=== PATIENT | male | born 1970 | race Two or more races ===

== ENCOUNTER 2022-12-09 18:20 | Inpatient (IN) | payer OTHER ==
[~2022-12-09] VITALS: Ht 175.3 cm; Wt 134.0 kg
[2022-12-09] MEDS ORDERED: NICARDIPINE 40MG/200ML PREMIX 200 ML IV STA (18:31)
[2022-12-09] MEDS ORDERED: PROPOFOL 10MG/ML 100ML 100 ML IV STA (18:31)
[2022-12-09 18:44] LABS: BASOPHILS % 0.3 % (0.0-2.0); EOSINOPHILS % 3.1 % (0.0-5.0); HEMATOCRIT. 46.2 % (42.0-52.0); HEMOGLOBIN. 15.8 g/dL (14.0-18.0); LYMPHOCYTES % 46.4 % (20.0-50.0); MEAN CORPUSCULAR HEMOGLOBIN 29.3 pg (28.0-32.0); MEAN PLATELET VOLUME 10.1 fl (7.4-10.4); MONOCYTES % 5.5 % (2.0-8.0); NEUTROPHILS % 44.7 % (40.0-76.0); PLATELET 200 x1000/uL (130-400); RED BLOOD CELL COUNT 5.37 mill/uL (4.7-6.1)
[2022-12-09] MEDS ORDERED: FENTANYL 2500MCG/250ML PMX 250 ML IV ONE (18:45)
[2022-12-09 18:54] LABS: CHLORIDE 100 mEq/L (98-107)
[2022-12-09] MEDS ORDERED: MANNITOL 12.5G (25%) VIAL 50ML IV ONE (19:00)
[2022-12-09] MEDS ORDERED: FENTANYL 2500MCG/250ML PMX 250 ML IV PRN (19:00)
[2022-12-09] MEDS ORDERED: LEVETIRACETAM 500MG PREMIX 100 ML IV ONE ×2 (19:00)
[2022-12-09 19:03] LABS: ETHANOL BLOOD < 10 mg/dL; PROTHROMBIN TIME 10.7 sec (9.6-11.0)
[2022-12-09 19:15] LABS: BG BASE EXCESS -2.4 mmol/L (-2.0-2.0); BG CARBOXYHEMOGLOBIN 0.9 % (0.5-1.5); BG DEOXYHEMOGLOBIN 0.4 % (0.0-5.0); BG METHEMOGLOBIN 0.5 % (0.0-1.5); BG OXYGEN SATURATION 99.6 % (92.0-98.5); BG OXYHEMOGLOBIN 98.2 % (94.0-97.0); BG PCO2 42.2 mmHg (35.0-45.0); BG PH 7.355 (7.350-7.450); BG PO2 210.3 mmHg (75.0-100.0); BG TOTAL HEMOGLOBIN 16.2 g/dL (12.0-18.0)
[2022-12-09] MEDS ORDERED: LEVETIRACETAM 1000MG PREMIX 100 ML IV NR (19:15)
[2022-12-09] MEDS ORDERED: MANNITOL IV NR (19:45)
[2022-12-09 20:45] LABS: CLARITY URINE CLEAR (CLEAR); COLOR URINE YELLOW (YELLOW); KETONES URINE TRACE (NEGATIVE); LEUKOCYTE ESTERASE URINE NEGATIVE (NEGATIVE); NITRITE URINE NEGATIVE (NEGATIVE); OCCULT BLOOD URINE 1+ (NEGATIVE); PH URINE 5.5 (4.5-8.0); PROTEIN URINE 3+ (NEGATIVE); UROBILINOGEN URINE 0.2 E.U./dL (0.2-1.0)
[2022-12-09 20:55] LABS: *AMPHETAMINES SCREEN URINE NEGATIVE (NEGATIVE); *BARBITURATES SCREEN URINE NEGATIVE (NEGATIVE); *BENZODIAZEPINES SCREEN URINE NEGATIVE (NEGATIVE); *COCAINE SCREEN URINE NEGATIVE (NEGATIVE); CANNABINOID URINE SCREEN NEGATIVE (NEGATIVE); METHADONE URINE SCREEN NEGATIVE (NEGATIVE); OPIATES URINE SCREEN NEGATIVE (NEGATIVE); PHENCYCLIDINE URINE SCREEN NEGATIVE (NEGATIVE)
[2022-12-09] MEDS ORDERED: PROPOFOL 10MG/ML 100ML 100 ML IV PRN (21:45)
[2022-12-09] MEDS ORDERED: ACETAMINOPHEN 650MG SUPP PR PRN (22:30)
[2022-12-09] MEDS ORDERED: IOHEXOL-350 100 ML BOTTLE ONE (23:17)
[2022-12-09] MEDS: KCL 20MEQ/100ML PREMIX 100 ML IV SCH (23:41)
[2022-12-10] VITALS (89 sets, daily range): BP systolic 78–188; BP diastolic 52–137
[2022-12-10] MEDS ORDERED: NICARDIPINE 100 MG in SODIUM CHLORIDE 0.9% 60 ML IV PRN ×2
[2022-12-10] MEDS ORDERED: NOREPINEPHRINE 8 MG in DEXT 5% WATER 242 ML IV PRN ×2 (00:15→14:00)
[2022-12-10] MEDS ORDERED: NOREPINEPHRINE 8 MG in DEXTROSE 5% WATER 250 ML IV PRN ×2 (00:15→00:45)
[2022-12-10] MEDS ORDERED: NOREPINEPHRINE 8MG/250ML PMX 250 ML IV PRN (00:15)
[2022-12-10] MEDS ORDERED: SODIUM CHLORIDE 0.9% 500 ML IV NR (00:15)
[2022-12-10] MEDS: DEXT 5%/LACTATED RINGERS 1,000 ML IV SCH ×2 (01:06→16:54)
[2022-12-10] MEDS: DEXAMETHASONE 4MG/ML 1ML VIAL IV SCH ×5 (01:06→23:41)
[2022-12-10] MEDS: KCL 20MEQ/100ML PREMIX 100 ML IV SCH (01:07)
[2022-12-10] MEDS ORDERED: KCL 10MEQ/50ML PREMIX 50 ML IV NR (03:00)
[2022-12-10 04:31] LABS: BASOPHILS % 0.3 % (0.0-2.0); EOSINOPHILS % 0.4 % (0.0-5.0); HEMATOCRIT. 42.6 % (42.0-52.0); HEMOGLOBIN. 14.5 g/dL (14.0-18.0); LYMPHOCYTES % 10.2 % (20.0-50.0); MEAN CORPUSCULAR HEMOGLOBIN 29.5 pg (28.0-32.0); MEAN CORPUSCULAR VOLUME 87.1 fL (80.0-94.0); MEAN PLATELET VOLUME 9.7 fl (7.4-10.4); MONOCYTES % 4.8 % (2.0-8.0); NEUTROPHILS % 84.3 % (40.0-76.0); PLATELET 178 x1000/uL (130-400); RED CELL DISTRIBUTION WIDTH 14.3 % (11.6-14.6)
[2022-12-10 04:40] LABS: CHLORIDE 102 mEq/L (98-107)
[2022-12-10] MEDS ORDERED: DEXTROSE 50% WATER 50ML SYRINGE IV PRN (06:45)
[2022-12-10] MEDS: INSULIN LISPRO 100 UNITS/ML SUBCUT SCH ×4 (06:59→23:42)
[2022-12-10 08:46] LABS: BG BASE EXCESS -0.7 mmol/L (-2.0-2.0); BG CARBOXYHEMOGLOBIN 0.3 % (0.5-1.5); BG DEOXYHEMOGLOBIN 3.3 % (0.0-5.0); BG FRACTION INSPIRED OXYGEN 70; BG HCO3 ACT 27.5 mmol/L (22.0-26.0); BG METHEMOGLOBIN 0.1 % (0.0-1.5); BG OXYGEN SATURATION 96.7 % (92.0-98.5); BG OXYHEMOGLOBIN 96.3 % (94.0-97.0); BG PCO2 59.7 mmHg (35.0-45.0); BG PH 7.282 (7.350-7.450); BG PO2 92.5 mmHg (75.0-100.0); BG SAMPLE SITE RIGHT RADIAL; BG TOTAL HEMOGLOBIN 16.4 g/dL (12.0-18.0); BG VENT MODE VENT - AC
[2022-12-10] MEDS ORDERED: LEVETIRACETAM 250 MG in SODIUM CHLORIDE 0.9% 100 ML IV SCH (09:00)
[2022-12-10] MEDS ORDERED: LEVETIRACETAM 500MG PREMIX 100 ML IV SCH (09:00)
[2022-12-10] MEDS: FAMOTIDINE 20MG/2ML VIAL IV SCH ×2 (09:02→21:52)
[2022-12-10] MEDS ORDERED: INSULIN LISPRO 100 UNITS/ML SUBCUT SCH (12:00)
[2022-12-10 12:08] LABS: BG BASE EXCESS -0.3 mmol/L (-2.0-2.0); BG CARBOXYHEMOGLOBIN 1.1 % (0.5-1.5); BG DEOXYHEMOGLOBIN 2.1 % (0.0-5.0); BG FRACTION INSPIRED OXYGEN 100; BG HCO3 ACT 26.1 mmol/L (22.0-26.0); BG METHEMOGLOBIN 0.4 % (0.0-1.5); BG OXYGEN SATURATION 97.9 % (92.0-98.5); BG OXYHEMOGLOBIN 96.4 % (94.0-97.0); BG PCO2 48.9 mmHg (35.0-45.0); BG PH 7.345 (7.350-7.450); BG PO2 96.5 mmHg (75.0-100.0); BG SAMPLE SITE RIGHT RADIAL; BG TOTAL HEMOGLOBIN 16.8 g/dL (12.0-18.0); BG VENT MODE VENT - AC
[2022-12-10] MEDS: BLOOD SUGAR DIAGNOSTIC STRIP TEST SCH ×3 (12:53→23:37)
[2022-12-10 13:04] LABS: BG BASE EXCESS 0.8 mmol/L (-2.0-2.0); BG CARBOXYHEMOGLOBIN 0.7 % (0.5-1.5); BG DEOXYHEMOGLOBIN 1.9 % (0.0-5.0); BG FRACTION INSPIRED OXYGEN 100; BG HCO3 ACT 27.4 mmol/L (22.0-26.0); BG METHEMOGLOBIN 0.3 % (0.0-1.5); BG OXYGEN SATURATION 98.1 % (92.0-98.5); BG OXYHEMOGLOBIN 97.1 % (94.0-97.0); BG PCO2 50.6 mmHg (35.0-45.0); BG PH 7.351 (7.350-7.450); BG PO2 103.5 mmHg (75.0-100.0); BG SAMPLE SITE RIGHT RADIAL; BG TOTAL HEMOGLOBIN 16.9 g/dL (12.0-18.0); BG VENT MODE VENT - AC
[2022-12-10] MEDS ORDERED: FUROSEMIDE 20MG/2ML VIAL IVP NR (13:15)
[2022-12-10 14:06] LABS: BG BASE EXCESS 0.7 mmol/L (-2.0-2.0); BG CARBOXYHEMOGLOBIN 0.4 % (0.5-1.5); BG FRACTION INSPIRED OXYGEN 100; BG HCO3 ACT 26.2 mmol/L (22.0-26.0); BG METHEMOGLOBIN 0.3 % (0.0-1.5); BG OXYHEMOGLOBIN 96.3 % (94.0-97.0); BG PCO2 44.6 mmHg (35.0-45.0); BG PH 7.386 (7.350-7.450); BG PO2 83.6 mmHg (75.0-100.0); BG SAMPLE SITE RIGHT RADIAL; BG TOTAL HEMOGLOBIN 16.8 g/dL (12.0-18.0); BG VENT MODE VENT - AC
[2022-12-10] MEDS: LEVETIRACETAM 500MG PREMIX 100 ML IV SCH (21:52)
[2022-12-11] VITALS (35 sets, daily range): BP systolic 119–147; BP diastolic 70–98
[2022-12-11 04:55] LABS: HEMATOCRIT. 44.9 % (42.0-52.0); MEAN CORPUSCULAR HEMOGLOBIN 29.6 pg (28.0-32.0); MEAN CORPUSCULAR VOLUME 88.5 fL (80.0-94.0); MEAN PLATELET VOLUME 10.5 fl (7.4-10.4); PLATELET 164 x1000/uL (130-400); RED BLOOD CELL COUNT 5.07 mill/uL (4.7-6.1); RED CELL DISTRIBUTION WIDTH 14.7 % (11.6-14.6)
[2022-12-11 05:09] LABS: CHLORIDE 116 mEq/L (98-107)
[2022-12-11 05:15] LABS: PHOSPHORUS 1.9 mg/dL (2.5-4.9)
[2022-12-11 05:42] LABS: PLATELET ESTIMATE NORMAL
[2022-12-11] MEDS: BLOOD SUGAR DIAGNOSTIC STRIP TEST SCH ×2 (05:51→12:57)
[2022-12-11] MEDS: INSULIN LISPRO 100 UNITS/ML SUBCUT SCH ×2 (05:57→12:56)
[2022-12-11 08:46] LABS: BG BASE EXCESS -1.8 mmol/L (-2.0-2.0); BG CARBOXYHEMOGLOBIN 0.7 % (0.5-1.5); BG DEOXYHEMOGLOBIN 9.2 % (0.0-5.0); BG HCO3 ACT 23.3 mmol/L (22.0-26.0); BG METHEMOGLOBIN 0.7 % (0.0-1.5); BG OXYGEN SATURATION 90.7 % (92.0-98.5); BG OXYHEMOGLOBIN 89.4 % (94.0-97.0); BG PCO2 40.8 mmHg (35.0-45.0); BG PH 7.374 (7.350-7.450); BG PO2 57.9 mmHg (75.0-100.0); BG SAMPLE SITE RIGHT RADIAL; BG TOTAL HEMOGLOBIN 15.9 g/dL (12.0-18.0); BG VENT MODE VENT - AC
[2022-12-11] MEDS: DEXT 5%/LACTATED RINGERS 1,000 ML IV SCH (08:47)
[2022-12-11] MEDS: LEVETIRACETAM 500MG PREMIX 100 ML IV SCH (08:48)
[2022-12-11] MEDS: FAMOTIDINE 20MG/2ML VIAL IV SCH (08:48)
== END 2022-12-11 20:30 | DRG 64 ==
LOC: ER 18:20 → EDBD 18:20 → MICUSO 20:55 → SUPCPDRO 21:45 → MICUSO 12-10 00:55
PROVIDERS: ADMIT Internal Medicine; ATTEND Internal Medicine
PROC: 0BH17EZ Insertion of Endotracheal Airway into Trachea, Via Natural or Artificial Opening (ICD-10-PCS; principal; 2022-12-09)
PROC: 5A1945Z Respiratory Ventilation, 24-96 Consecutive Hours (ICD-10-PCS; 2022-12-09)
DX: I61.5 Nontraumatic intracerebral hemorrhage, intraventricular (principal); J96.01 Acute respiratory failure with hypoxia; I16.1 Hypertensive emergency; G93.40 Encephalopathy, unspecified; Z68.41 Body mass index [BMI] 40.0-44.9, adult; I60.9 Nontraumatic subarachnoid hemorrhage, unspecified; E87.6 Hypokalemia; E66.9 Obesity, unspecified; I10 Essential (primary) hypertension; Z91.199 Patient's noncompliance with other medical treatment and regimen due to unspecified reason
CPT/HCPCS: 31500; 36415; 36600; 70496; 70498; 71045; 78610; 80048; 80053; 80305; 80320; 81003; 82375; 82805; 82962; 83036; 83735; 84100; 84484; 85025; 86850; 86900; 93005; 94002; 94003; 99291; A9512; J1100; J1815; J1940; J1953; J2704; J3010; J3480; J3490; J7121; Q9967; A4315; G0480